=== PATIENT | male | born 1975 | race Caucasian/White ===

== ENCOUNTER → 2018-10-18 | Outpatient (CLI) | payer OTHER | LOC: CAT 08:55 | DX: Z13.6 Encounter for screening for cardiovascular disorders (principal) ==

== ENCOUNTER → 2018-10-18 | Outpatient (CLI) | payer OTHER ==
--- NOTE | 2018-10-18 12:05 | EXE ---
[facility] [place] [employer] [place] [address] STRESS ECHOCARDIOGRAM Name: KIMBERLY RAMOS Room #: [facility]#: [id number] Admission: 10/18/18 Attend Phys: Ken Vega, Discharge: Date of : 73 Date of Service: 10/18/18 1205 Report #: [id number] THIS REPORT FOR: //name// APPROVED REPORT Study performed: 10/18/2018 09:09:41 Exam: Stress Echocardiogram Indication: Chest pain, HTN Patient Location: Out-Patient Stress Nurse: Lluvia Deras RN Status: routine Ht: 6 ft 1 in HR: 74 bpm BP: 142/80 mmHg Medical History Medications: HTN, HLP Allergies: No known drug allergies Procedure The patient underwent an Exercise Stress Test using the Girma Protocol. Blood pressure, heart rate, and EKG were monitored. An Echocardiogram was performed by in tube conversion technician in four stages in quad fashion. At peak stress, four selected images were obtained and placed side by side with resting images for comparison. Echo Enhancing Agent Indication: Endocardial border delineation Agent(s) / Amount(s) Used: Optison 6 cc Stress Test Details Stress Test: Exercise stress testing was performed using a Girma protocol. HR Resting HR: 74 bpm Max Heart Rate (APMHR): 176 bpm Max HR Achieved: 131 bpm Target HR (85% APMHR): 149 bpm % of APMHR: 74 Recovery HR: 84 bpm HR response to stress: Normal HR response to stress BP [facility] [address] [place] [address] STRESS ECHOCARDIOGRAM Name: KIMBERLY RAMOS Marry Room #: [facility]#: [id number] Admission: 10/18/18 Attend Phys: Ken Vega, Discharge: Date of : 73 Date of Service: 10/18/18 1205 Report #: [id number] Resting BP: 142/80 mmHg Max BP: 156/90 mmHg Recovery BP: 136/68 mmHg BP response to stress: Normal blood pressure response to stress. ECG Clinical Reason for Termination: Moderate fatigue Stress Symptoms: Dyspnea Exercise duration: 9 min sec Highest Stage Achieved: Stage 3: 3.4 mph at 14% grade. Exercise capacity: 10.40 METs Maximum heart rate was not achieved. Pre-Stress Echo The resting Echocardiogram showed normal left ventricular contractility with an estimated Ejection Fraction of about 60-65%. No significant valvular abnormalities. Post-Stress Echo The stress Echocardiogram showed normal left ventricular contractility with an estimated Ejection Fraction of about >70%. Conclusion Clinical Response: Non-ischemic Exercise Capacity: Average Stress ECG Response: Non-ischemic Stress Echo Images: Non-ischemic Other Information Study Quality: Fair Technically limited study due to morbid obesity. <ELECTRONICALLY SIGNED> By: Ken Vega MD, FAC 10/18/18 1205 1205 1205 Ken Vega MD, [facility] /INF
== END ==
LOC: CV 08:46
DX: I10 Essential (primary) hypertension (principal); E78.5 Hyperlipidemia, unspecified

== ENCOUNTER → 2020-04-05 | Outpatient (CLI) | payer OTHER | LOC: LAB 08:37 | PROVIDERS: ATTEND Internal Medicine Cardiovascular Disease | DX: Z01.812 Encounter for preprocedural laboratory examination (principal); Z11.59 Encounter for screening for other viral diseases ==

== ENCOUNTER → 2021-09-25 | Outpatient (CLI) | payer OTHER | LOC: SJCVCIMAG 12:42 | PROVIDERS: ATTEND Internal Medicine Cardiovascular Disease | DX: R93.1 Abnormal findings on diagnostic imaging of heart and coronary circulation (principal); I10 Essential (primary) hypertension; E78.00 Pure hypercholesterolemia, unspecified; R63.1 Polydipsia; R35.89 Other polyuria; R53.83 Other fatigue; R06.00 Dyspnea, unspecified; K21.9 Gastro-esophageal reflux disease without esophagitis; Z86.16 Personal history of COVID-19; Z72.89 Other problems related to lifestyle; Z79.82 Long term (current) use of aspirin; Z79.899 Other long term (current) drug therapy ==

== ENCOUNTER → 2021-10-21 | Outpatient (CLI) | payer OTHER | LOC: SJCVCIMAG 07:55 | PROVIDERS: ATTEND Internal Medicine Cardiovascular Disease | DX: I10 Essential (primary) hypertension (principal) ==